=== PATIENT | female | born 1995 | race Caucasian/White ===

== ENCOUNTER → 2022-11-20 16:49 | Outpatient (CLI) | payer BC, SELFPAY ==
--- NOTE | 2022-11-20 | DI.RAD.S_ITS ---
PROCEDURE: XR CERVICAL SPINE 2V OR 3V INDICATIONS: NECK PAIN WITH RADICULOPATHY TO LT ARM TECHNIQUE: 3 view(s) of the cervical spine were acquired. COMPARISON: None. FINDINGS: Bones: There is loss of normal cervical lordosis with prominent kyphotic curvature. No fractures or dislocations to the T1 level. The lateral masses of C1 appear intact on the odontoid view. No suspicious bony lesions. Soft tissues: No prevertebral soft tissue swelling. IMPRESSION: 1. Abnormal cervical spine for curvature with prominent kyphosis. This finding could be caused by ligamentous injury or muscle spasm. If clinical symptoms persist or clinical suspicion for pathology is high, MRI is suggested for further evaluation. 2. No acute osseous abnormality. Dictated by: Petra Roper M.D. on 11/22/2022 at 12:53 Approved by: Petra Roper M.D. on 11/22/2022 at 12:57
== END ==
PROVIDERS: PCP Internal Medicine; Referring Provider Internal Medicine; Visit Provider Internal Medicine
DX: M54.12 Radiculopathy, cervical region (principal); M40.202 Unspecified kyphosis, cervical region
CPT/HCPCS: 72040